=== PATIENT | female | born 1985 | race Caucasian/White ===

== ENCOUNTER 2019-11-01 05:44 | Emergency (ER) | payer SELFPAY ==
[2019-11-01] MEDS ORDERED: Amoxicillin/Potassium Clav 875 MG TAB ONE (06:04)
== END 2019-11-01 06:10 | disposition home or self-care (01) ==
LOC: MADERS 05:44
DX: H66.92 Otitis media, unspecified, left ear (principal); R59.0 Localized enlarged lymph nodes; F17.210 Nicotine dependence, cigarettes, uncomplicated
CPT/HCPCS: 99282